=== PATIENT | male | born 1995 | race Two or more races ===

== ENCOUNTER 2019-04-16 10:35 | Emergency (ER) | payer SELFPAY ==
[2019-04-16] MEDS ORDERED: Bacitracin/Neomycin/Polymyxin B Oint 0.9 GM U/D Packet TOP ONE (11:54)
[2019-04-16] MEDS ORDERED: Diphtheria/Tetanus Toxoids,Adult (Td) 0.5 ML Syringe IM ONE (11:55)
--- NOTE | 2019-04-16 12:18 | EDM.PDOC ---
ED HPI GENERAL MEDICAL PROBLEM - General Chief Complaint: Laceration Stated Complaint: FINGER LACERATION Time Seen by Provider: 04/16/19 10:58 Source of Information: Reports: Patient History Limitations: Reports: Language Barrier - History of Present Illness INITIAL COMMENTS - FREE TEXT/NARRATIVE: Patient comes to ER with finger laceration sustained at [employer] where he is employed. Arrived from [place] on 1 year work visa last January. Is able to speak some Somali. Denies previous significant health history. Non-smoker. No other complaints/injuries. Nursing staff did connect us with map editor service during intake history and when suturing was initiated. Left Finger-Middle Pain Score (Numeric/FACES): 4 - Related Data Allergies Allergy/AdvReac Type Severity Reaction Status Date / Time aspirin Allergy Facial Verified 04/16/19 10:43 Swelling Home Meds: Home Meds Multivitamin/Iron/Folic Acid [Centrum Complete Multivit] 1 tab PO DAILY [History] Omeprazole 20 mg PO DAILY PRN 04/16/19 [History] Past Medical History Gastrointestinal History: Reports: GERD Social & Family History - Tobacco Use Smoking Status *Q: Never Smoker ED ROS GENERAL - Review of Systems Review Of Systems: Comprehensive ROS is negative, except as noted in HPI. ED EXAM, SKIN/RASH Exam: See Below Exam Limited By: No Limitations General Appearance: Alert, WD/WN, No Apparent Distress Eye Exam: Bilateral Eye: Foreign Body, PERRL Throat/Mouth: Normal Voice, No Airway Compromise Head: Atraumatic, Normocephalic Neck: Supple Respiratory/Chest: No Respiratory Distress Extremities: Normal Range of Motion, Normal Capillary Refill Neurological: Alert, Oriented, Normal Cognition, Normal Gait, No Motor/Sensory Deficits Skin: Other (laceration down side of left middle finger. Tendon function intact. No deformity. No other signs of injury/trauma. ) ED SKIN PROCEDURES - Laceration/Wound Repair Left Digit - 3rd (Middle) Appearance: Subcutaneous, Irregular, Clean Anesthetic Type: Other (combo of digital/local block) Local Anesthesia - Lidocaine (Xylocaine): 1% Plain Local Anesthetic Volume: 5cc Skin Prep: Providone-Iodine (Betadine) Exploration/Debridement/Repair: Wound Explored, In a Bloodless Field, Explored to Base, No Foreign Material Found Lac/Wound length In cm: 4 Suture Size: 4-0 # of Sutures: 10 Suture Type: Nylon, Interrupted Sterile Dressing Applied: Nurse Tetanus Status Addressed: Yes Complications: No Course - Vital Signs Last Recorded V/S: Last Vital Signs Temp 36.6 C 04/16/19 10:36 Pulse 70 04/16/19 10:36 Resp 16 04/16/19 10:36 BP 134/82 04/16/19 10:36 Pulse Ox 99 04/16/19 10:36 - Orders/Labs/Meds Orders: Active Orders 24 hr Category Date Time Status Vaccines to be Administered [RC] PER UNIT ROUTINE Care 04/16/19 11:55 Ordered Fingers Third Digit Lt F2 [CR] Stat Exams 04/16/19 11:02 Ordered Meds: Medications Discontinued Medications Generic Name Dose Route Start Last Admin Trade Name Dea PRN Reason Stop Dose Admin Lidocaine HCl 5 ml 04/16/19 11:02 04/16/19 11:13 Xylocaine-Mpf 1% INJECT 04/16/19 11:03 5 ml ONETIME ONE Administration Neomycin/Polymyxin/Bacitracin 1 each 04/16/19 11:54 04/16/19 12:09 Triple Antibiotic Oint TOP 04/16/19 11:55 1 each ONETIME ONE Administration Tetanus/Diphtheria Toxoids 0.5 ml 04/16/19 11:55 04/16/19 12:10 Tenivac IM 04/16/19 11:56 0.5 ml .ONCE ONE Administration - Re-Assessments/Exams Free Text/Narrative Re-Assessment/Exam: 04/16/19 12:29 Laceration repaired. Dressing applied. Wound care and follow up care reviewed with patient using map editor service. To follow up in two days to have wound check and further work restrictions as needed. Sutures out 10 days. Td updated Departure - Departure Time of Disposition: 12:16 Disposition: Home, Self-Care 01 Condition: Good Clinical Impression: Laceration of middle finger Qualifiers: Encounter type: initial encounter Damage to nail status: without damage Foreign body presence: without foreign body Laterality: left Qualified Code(s): S61.213A - Laceration without foreign body of left middle finger without damage to nail, initial encounter - Discharge Information *PRESCRIPTION DRUG MONITORING PROGRAM REVIEWED*: Not Applicable *COPY OF PRESCRIPTION DRUG MONITORING REPORT IN PATIENT JULIANNE: Not Applicable Instructions: Laceration Care, Adult Referrals: PCP,None [Primary Care Provider] - Forms: ED Department Discharge, ED Return to Work/School Form Additional Instructions: Keep bandage on until wound check at clinic in 2 days. Further instructions Tuesday after wound check. Follow up as needed if any signs of infections/ other problems develop. Sutures out 10 days Sepsis Event Note - Evaluation Sepsis Screening Result: No Definite Risk - Focused Exam Vital Signs: Vital Signs Temp Pulse Resp BP Pulse Ox 04/16/19 10:36 36.6 C 70 16 134/82 99 Date Exam was Performed: 04/16/19 Time Exam was Performed: 12:22 - My Orders Last 24 Hours: My Active Orders 04/16/19 11:02 Fingers Third Digit Lt F2 [CR] Stat 04/16/19 11:55 Vaccines to be Administered [RC] PER UNIT ROUTINE - Assessment/Plan Last 24 Hours: My Active Orders 04/16/19 11:02 Fingers Third Digit Lt F2 [CR] Stat 04/16/19 11:55 Vaccines to be Administered [RC] PER UNIT ROUTINE
== END 2019-04-16 13:00 | disposition home or self-care (01) ==
LOC: LL.ED 10:35
DX: S61.213A Laceration without foreign body of left middle finger without damage to nail, initial encounter (principal); K21.9 Gastro-esophageal reflux disease without esophagitis; Z23 Encounter for immunization; Z79.899 Other long term (current) drug therapy; Z88.6 Allergy status to analgesic agent; W19.XXXA Unspecified fall, initial encounter; Y99.0 Civilian activity done for income or pay
CPT/HCPCS: 12002; 73140-F2; 90471; 90714; 99282; 99283-25; J2001

== ENCOUNTER 2023-11-05 08:13 | Emergency (ER) | payer SELFPAY ==
[2023-11-05 09:35] LABS: BASOPHILS ABSOLUTE AUTO 0.02 K/uL (0.00-0.20); BASOPHILS PERCENT AUTO 0.5 % (0.0-2.0); EOSINOPHILS ABSOLUTE AUTO 0.03 K/uL (0.00-0.50); EOSINOPHILS PERCENT AUTO 0.7 % (0.0-5.0); HEMATOCRIT 48.5 % (39.0-49.0); HEMOGLOBIN 16.7 g/dL (13.1-16.8); LYMPHOCYTES ABSOLUTE AUTO 0.48 K/uL (0.50-3.50); MEAN CORPUSCULAR HEMOGLOBIN 30.8 pg (28.2-33.3); MEAN CORPUSCULAR HGB CONC 34.4 g/dL (31.7-36.0); MEAN CORPUSCULAR VOLUME 89.5 fL (84.0-98.0); MONOCYTES ABSOLUTE AUTO 0.41 K/uL (0.00-1.00); MONOCYTES PERCENT AUTO 9.4 % (2.0-14.0); NEUTROPHILS ABSOLUTE AUTO 3.43 K/uL (1.40-7.00); NEUTROPHILS PERCENT AUTO 78.4 % (45.0-80.0); PLATELET COUNT,PLT 133 K/uL (150-350); RED BLOOD CELL COUNT 5.42 M/uL (4.33-5.41); RED CELL DISTRIBUTION WIDTH 12.4 % (11.2-14.1); WHITE BLOOD CELL COUNT,WBC 4.4 K/uL (4.0-10.2)
[2023-11-05 10:02] LABS: ALANINE AMINOTRANSFERASE,ALT 25 U/L (12-78); ALBUMIN 4.4 g/dL (3.4-5.0); ALKALINE PHOSPHATASE 85 IU/L (46-116); ANION GAP 7.4 meq/L (7-15); ASPARTATE AMNIOTRANSFERASE,AST 19 U/L (15-37); BLOOD UREA NITROGEN,BUN 15 mg/dL (7-18); CALCIUM 8.8 mg/dL (8.5-10.1); CARBON DIOXIDE,CO2 30.6 mmol/L (21.0-32.0); CHLORIDE,CL 103 mmol/L (98-107); CREATININE 1.01 mg/dL (0.51-1.17); GLUCOSE RANDOM 93 mg/dL (70-99); POTASSIUM,K 4.7 mmol/L (3.5-5.1); PROTEIN TOTAL,TP 8.3 g/dL (6.4-8.2); SODIUM,NA 141 mmol/L (136-145)
[2023-11-05 10:09] LABS: ESTIMATED GFR 103 mL/min (>=60)
[2023-11-05] MEDS: Iopamidol 612 MG/ML 100 ML Bottle IVPUSH ONE (10:09)
[2023-11-05] MEDS: Iopamidol 612 MG/ML 100 ML Bottle ONE (10:09)
[2023-11-05] MEDS: cefTRIAXone 2 GM Vial IVPUSH SCH (10:46)
[2023-11-05] MEDS: Take Home: Cephalexin 500 MG Cap, 6 Cap Pack PO ONE (10:46)
[2023-11-05] MEDS: Sodium Chloride 0.9% 10 ML Syringe FLUSH PRN (10:47)
[2023-11-05] MEDS: Take Home: Cephalexin 500 MG Cap, 6 Cap Pack ONE (10:55)
== END 2023-11-05 11:00 | disposition home or self-care (01) ==
LOC: LL.ED 08:13
DX: L03.113 Cellulitis of right upper limb (principal); Z88.6 Allergy status to analgesic agent
CPT/HCPCS: 36415; 73080-RT; 73202-RT; 80053; 85025; 96374; 99284-25; A9270-GY; J0696; J3490; Q9967